=== PATIENT | male | born 1940 | race Caucasian/White ===

== ENCOUNTER 2023-09-25 10:14 | Outpatient (CLI) | payer OTHER, SELFPAY ==
--- NOTE | 2023-09-25 11:05 | W.ANESCHARGE ---
Anesthesia Charges Start Date/Time Anesthesia Start Date: 09/25/23 Anesthesia Start Time: 11:14 Stop Date/Time Anesthesia Stop Date: 09/25/23 Anesthesia Stop Time: 11:51 Summary Extremes of Age - Over 70 or under 1: [employer]
--- NOTE | 2023-09-25 12:45 | W.ANESCHARGE ---
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
== END 2023-09-25 10:15 | disposition home or self-care (01) ==
LOC: OP CLINIC 10:18
PROVIDERS: PCP Family Medicine; Visit Provider Internal Medicine Gastroenterology
DX: Z12.11 Encounter for screening for malignant neoplasm of colon (principal); K63.5 Polyp of colon; Z86.010 Personal history of colon polyps
CPT/HCPCS: 00811; 45385; 88305; 99100; J2704